=== PATIENT | male | born 1950 | race Caucasian/White ===

== ENCOUNTER → 2016-11-10 | Outpatient (CLI) | payer OTHER ==
--- NOTE | 2016-11-10 15:18 | XCELERA REPORT ---
[address] [address] Lower Extremity Arterial Evaluation Name: MICHAEL ERICKSON Age: 66 yrs Gender: Male : 1950 Patient Status: Outpatient Patient Location: Study Date: 11/10/2016 09:28 AM Procedure: A color flow and duplex scan of the lower extremity arteries was performed bilaterally with velocity and waveform anaylsis. Ankle brachial indicies performed. Reason For Study: PAIN Ordering Physician: LIANE PHILIPPE Performed By: Maycol Dover Measurements and Calculations Right Left DEPUTY SHERIFF GENERALIST/BAILIFF PSV 104.3 120.2 cm/sec Prox PFA PSV -98.7 -72.7 cm/sec Dist SFA PSV -93.7 -97.2 cm/sec Prox Pop A PSV 58.9 67.6 cm/sec Dist CORNELIUS PSV 36.2 38.5 cm/sec Dist CLIENT ARCHITECT PSV 61.3 64.6 cm/sec Hakan Pedis PSV 19.8 27.7 cm/sec Right Side Arterial Evaluation Normal velocity, waveform and triphasic flow are present, from the Common Femoral artery to the Posterior Tibial artery. Biphasic in the Deep Femoral and Anterior Tibial arteries. The ankle-brachial index is 1.11. 0-19 % stenosis is noted at the Anterior Tibial and Deep Femoral artery. Left Side Arterial Evaluation Normal velocity, waveform and triphasic flow are present, from the Common Femoral artery to the Posterior Tibial artery. Biphasic in the Deep Femoral and Anterior Tibial arteries. The ankle-brachial index is 1.05. 0-19 % stenosis is noted at the Anterior Tibial and Deep Femoral artery. Interpretation Summary Mild hemodynamically significant lesions in the bilateral lower extremities, on duplex imaging, at rest. : LIANE PHILIPPE > Matt Ramon
--- NOTE | 2016-11-10 15:20 | XCELERA REPORT ---
[address] [address] Lower Extremity Venous Evaluation Name: MICHAEL ERICKSON Age: 66 yrs Gender: Male : 1950 Patient Status: Outpatient Patient Location: Study Date: 11/10/2016 09:41 AM Procedure: A bilateral duplex scan of the lower extremity veins was performed. The evaluation included responses to compression and other maneuvers with patient in the supine and standing positions to assess venous insufficiency. Reason For Study: PAIN Ordering Physician: LIANE PHILIPPE Performed By: Maycol Dover Right Sided Venous Evaluation Deep venous system evaluatiion shows patent veins with no obstruction or significant reflux identified. Sapheno Femoral junction: no reflux. Femoral vein reflux: none identified Greater Saphenous reflux: none identified. Short Saphenous reflux: none identified. No significant Perforators identified. Left Sided Venous Evaluation Deep venous system evaluatiion shows patent veins with no obstruction or significant reflux identified. Sapheno Femoral junction: no reflux. Femoral vein reflux: none identified Greater Saphenous reflux: none identified. Short Saphenous reflux: none identified. No significant Perforators identified. Interpretation Summary No duplex evidence of DVT or obstruction in the bilateral lower extremities. No significant reflux identified. : LIANE PHILIPPE > Matt Ramon
== END ==
LOC: SP 08:50
PROVIDERS: ATTEND Student in an Organized Health Care Education/Training Program
DX: I87.2 Venous insufficiency (chronic) (peripheral) (principal)
CPT/HCPCS: 93925; 93970

== ENCOUNTER → 2017-05-29 | Outpatient (CLI) | payer MEDICARE, BC ==
[2017-05-29 09:46] LABS: ALANINE AMINOTRANSFERASE 19 U/L (21-72); ALBUMIN 3.9 g/dL (3.5-5.0); ALKALINE PHOSPHATASE 80 U/L (38-126); ANION GAP 9 (5-19); ASPARTATE AMINO TRANSFERASE 20 U/L (17-59); BILIRUBIN,DIRECT 0.4 mg/dL (0.0-0.4); BILIRUBIN,TOTAL 0.5 mg/dL (0.2-1.3); BLOOD UREA NITROGEN 16 mg/dL (7-20); CALCIUM 9.9 mg/dL (8.4-10.2); CARBON DIOXIDE 27 mmol/L (22-30); CHLORIDE 104 mmol/L (98-107); CHOLESTEROL 142.63 mg/dL (0-200); CREATININE RESULT 0.96 mg/dL (0.52-1.25); Direct HDL 54 mg/dL (>40); GLUCOSE 136 mg/dL (75-110); POTASSIUM 5.3 mmol/L (3.6-5.0); SODIUM 140.2 mmol/L (137-145); TOTAL PROTEIN 6.5 g/dL (6.3-8.2); TRIGLYCERIDES 106 mg/dL (<150)
[2017-05-29 09:57] LABS: DIRECT LDL 72 mg/dL (<100)
== END ==
LOC: OD 08:42
PROVIDERS: ATTEND Internal Medicine
DX: I25.10 Atherosclerotic heart disease of native coronary artery without angina pectoris (principal); I25.2 Old myocardial infarction; E78.5 Hyperlipidemia, unspecified; E11.9 Type 2 diabetes mellitus without complications; I10 Essential (primary) hypertension; I34.0 Nonrheumatic mitral (valve) insufficiency; Z79.899 Other long term (current) drug therapy
CPT/HCPCS: 36415; 80053; 80061

== ENCOUNTER → 2017-12-07 | Outpatient (CLI) | payer MEDICARE, BC ==
[2017-12-07 12:13] LABS: ALANINE AMINOTRANSFERASE 31 U/L (21-72); ALBUMIN 4.1 g/dL (3.5-5.0); ALKALINE PHOSPHATASE 88 U/L (38-126); ANION GAP 10 (5-19); ASPARTATE AMINO TRANSFERASE 21 U/L (17-59); BILIRUBIN,DIRECT 0.1 mg/dL (0.0-0.4); BILIRUBIN,TOTAL 0.2 mg/dL (0.2-1.3); BLOOD UREA NITROGEN 14 mg/dL (7-20); CALCIUM 9.6 mg/dL (8.4-10.2); CARBON DIOXIDE 27 mmol/L (22-30); CHLORIDE 98 mmol/L (98-107); CHOLESTEROL 150.92 mg/dL (0-200); GLUCOSE 139 mg/dL (75-110); POTASSIUM 5.2 mmol/L (3.6-5.0); SODIUM 134.6 mmol/L (137-145); TOTAL PROTEIN 6.4 g/dL (6.3-8.2); TRIGLYCERIDES 150 mg/dL (<150)
[2017-12-07 12:23] LABS: DIRECT LDL 77 mg/dL (<100)
== END ==
LOC: OD 10:43
PROVIDERS: ATTEND Internal Medicine
DX: I25.10 Atherosclerotic heart disease of native coronary artery without angina pectoris (principal); I10 Essential (primary) hypertension; E11.9 Type 2 diabetes mellitus without complications; E78.5 Hyperlipidemia, unspecified; I34.0 Nonrheumatic mitral (valve) insufficiency; I25.2 Old myocardial infarction; Z79.899 Other long term (current) drug therapy
CPT/HCPCS: 36415; 80053; 80061; 83036

== ENCOUNTER 2018-03-02 05:16 | Day surgery (SDC) | payer MEDICARE, BC ==
[2018-02-16 12:56] LABS: ABSOLUTE BASOPHILS # (AUTO) 0.1 10^3/uL (0.0-0.2); ABSOLUTE EOSINOPHILS # (AUTO) 0.2 10^3/uL (0.0-0.6); ABSOLUTE LYMPHOCYTES (AUTO) 2.4 10^3/uL (0.5-4.7); ABSOLUTE MONOCYTES (AUTO) 0.8 10^3/uL (0.1-1.4); ABSOLUTE NEUT (AUTO) 5.1 10^3/uL (1.7-8.2); BASOPHILS % (AUTO) 0.8 % (0-2); EOSINOPHILS % (AUTO) 2.5 % (0-6); HEMATOCRIT 43.2 % (37.9-51.0); HEMOGLOBIN 14.8 g/dL (13.5-17.0); LYMPHOCYTES % (AUTO) 28.2 % (13-45); MEAN CORPUSCULAR HGB CONC 34.1 g/dL (32.0-36.0); MEAN CORPUSCULAR VOLUME 91 fl (80-97); MONOCYTES % (AUTO) 9.5 % (3-13); PLATELET COUNT 289 10^3/uL (150-450); RED BLOOD COUNT 4.75 10^6/uL (4.35-5.55); RED CELL DISTRIBUTION WIDTH 14.8 % (11.5-14.0); TOTAL CELLS COUNTED % (AUTO) 100 %; WHITE BLOOD COUNT 8.6 10^3/uL (4.0-10.5)
[2018-02-16 13:01] LABS: INTERNATIONAL RATION (INR) 0.85; PROTHROMBIN TIME 12.1 SEC (11.4-15.4)
[2018-02-16 13:02] LABS: PARTIAL THROMBOPLASTIN TIME 25.2 SEC (23.5-35.8)
--- NOTE | 2018-02-16 13:36 | EKG REPORT ---
SEVERITY:- OTHERWISE NORMAL ECG - SINUS RHYTHM LOW VOLTAGE IN FRONTAL LEADS : Confirmed by: Sandro Cedillo MD 16-Feb-2018 13:35:56
[~2018-03-02 05:16] MED LIST: DOXYCYCLINE HYCLATE 100 MG in DEXTROSE 5%-WATER 250 ML IV PRN; LACTATED RINGERS 1000 ML IV PRN; LIDOCAINE 0.5% INJ-PF (5 MG/ML) 50 ML SDV SUBCUT PRN
[2018-03-02] MEDS ORDERED: POVIDONE-IODINE 5% OPH PREP SOLN 30 ML ONE (05:59)
[2018-03-02] MEDS ORDERED: SODIUM BICARBONATE 8.4% INJ 50 MEQ/50 ML DISP.SYRIN ONE (06:00)
[2018-03-02] MEDS ORDERED: LIDOCAINE 1%/EPINEPHRINE INJ 20 ML VIAL ONE (06:00)
[2018-03-02] MEDS ORDERED: FENTANYL CITRATE INJ/PF 100 MCG/2 ML AMPUL ONE (06:57)
[2018-03-02] MEDS ORDERED: MIDAZOLAM 2 MG/2 ML INJ ONE (06:57)
[2018-03-02] MEDS ORDERED: PROPOFOL INJ 200 MG/20 ML VIAL IV ONE (06:57)
[2018-03-02] MEDS ORDERED: FENTANYL CITRATE INJ/PF 100 MCG/2 ML AMPUL IV PRN ×3 (07:52)
[2018-03-02] MEDS ORDERED: MEPERIDINE HCL/PF INJ 25 MG/1 ML DISP.SYRIN IV PRN (07:52)
[2018-03-02] MEDS ORDERED: PROMETHAZINE HCL INJ 25 MG/1 ML VIAL IV PRN ×2 (07:52)
[2018-03-02] MEDS ORDERED: MORPHINE SULFATE 10 MG/ML INJ IV PRN (07:52)
[2018-03-02] MEDS ORDERED: DIPHENHYDRAMINE HCL 50 MG/ML VIAL IV PRN (07:52)
--- NOTE | 2018-03-02 09:43 | Operative Report ---
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 Reconstruction was with a lower eyelid rotation advancement flap reconstruction SURGEON: SURYA GUSTAFSON ANESTHESIA: LMAC TISSUE REMOVED OR ALTERED: Basal cell carcinoma COMPLICATIONS: None ESTIMATED BLOOD LOSS: Minimal PROCEDURE: Patient seen and was marked prior to being brought into the operating room. Patient was brought into the operating room and placed on the operating room table in a [supine] position. Patient was then prepped with a Betadine scrub and Betadine solution and draped in a sterile and aseptic manner. The area was then marked. 12 O'clock was marked towards the nose 3 O'clock was marked towards the lower eyelid 6:00 was marked towards the lateral eyelid 9:00 was marked towards the medial cheek The area was then anesthetized with 1% lidocaine with epinephrine and bicarbonate for its anesthetic and hemostatic effects. The area was then excised and marked at 12:00. The specimen was sent for frozen section. The base was reported by Dr. Suárez as close but he did see some of the orbicularis oculi muscle. He did further sections and we waited to get those results and he says the base is now clear. However the 9:00 margin he said was positive. We resected the 9: 00 margin which came back without cancer and therefore he felt that we had removed all the carcinoma and no further intervention was necessary. The final results came back and read as the deep and lateral margins were free. We had considered a primary closure but this would go against the natural relaxed skin tension lines. A primary closure would be too tight and would have increased chance of dehiscence and distortion of the eyelid.. This will leave more of a scar so we decided to use a rotation advancement flap reconstruction which would camouflage the scar better and take tension off of the closure so that would be less chances of complications. The design of the reconstruction would put minimal pull on the vertical height of the eyelid so it would minimize ectropion formation. It would also allow us to have some of the reconstruction of the long the patient's natural infraorbital groove along the tear trough and the nasojugal fold. Then we went ahead and outlined the flap and anesthetized it. We then incised the flap and developed a flap maintaining the subdermal plexus. Then we undermined 360 to allow for plate like scarring and minimize trap door deformity. Throughout the case hemostasis was achieved with the bipolar. We then sutured the flap into its new position using 5-0 Vicryl for the subcutaneous and deep dermis. Skin was closed with a interrupted stitch using 6-0 Prolene and 6-0 fast- absorbing gut. We then applied tincture benzoin and Steri-Strips followed by a light pressure dressing. Patient was then reversed from anesthesia and taken to the [facility] for recovery. The patient tolerated well. There were no complications. Lesion size was approximately 1.3 x 1.0 cm please see pathology for actual size. Portions of this note may be dictated using [employer] voice recognition software. Occasional variations and spelling and vocabulary could be possible and are unintentional. Additionally, there is a chance that some errors may not be caught or corrected. Please notify the author of any discrepancies noted or if any statements are unclear. Subjective: No complaints Objective: Vital signs stable afebrile No bleeding Dressing intact Assessment and plan: Doing well. Elevate the operative site. Resume medications. Take antibiotics for 1 day Follow-up Full instructions were given to the patient and family and they understand Portions of this note may be dictated using [employer] voice recognition software. Occasional variations and spelling and vocabulary could be possible and are unintentional. Additionally, there is a chance that some errors may not be caught or corrected. Please notify the offer of any discrepancies noted or if any statements are unclear.
--- NOTE | 2018-03-02 09:44 | Discharge Summary ---
Discharge Summary (SDC) - Discharge Final Diagnosis: Basal cell carcinoma of the left lower eyelid Date of Surgery: 03/02/18 Condition: Good Treatment or Instructions: Leave the top dressing on for 2 days, then removed. Leave the steri-strip tapes on for 5 days, then removal. Then cleaning wound with peroxide and apply Neosporin/bacitracin 3 times per day. Antibiotics for 1 day, then discontinue. Elevate operative area to decrease swelling. Do not strain, or lift heavy objects. Call for excessive bleeding, increased temperature of 101, uncontrolled pain, or excessive nausea or vomiting. You may reach Dr. Knowles through his office at [phone]. In the event of an emergency after hours, then contact Dr. Knowles through [facility]. Return to the office for a postop check on . The time will be scheduled by the nursing staff of [facility] prior to discharge. Please give the patient a copy of their labs and EKG so they can bring this to their PMD. Thank you Portions of this note may be dictated using [employer] voice recognition software. Occasional variations and spelling and vocabulary could be possible and are unintentional. Additionally, there is a chance that some errors may not be caught or corrected. Please notify the offer of any discrepancies noted or if any statements are unclear. Referrals: LIANE PHILIPPE, [Primary Care Provider] - Discharge Diet: As Tolerated Report the Following to Your Physician Immediately: Unusual Bleeding - Keep head elevated. No bending or straining. Do not rub the eyes.
[2018-03-02 11:30] VITALS: BP 119/74
== END 2018-03-02 11:05 | disposition home or self-care (01) ==
LOC: OROUT 05:16
PROVIDERS: ATTEND Plastic Surgery
DX: C44 Other and unspecified malignant neoplasm of skin (principal); J44.9 Chronic obstructive pulmonary disease, unspecified; K21.9 Gastro-esophageal reflux disease without esophagitis; Z79.51 Long term (current) use of inhaled steroids; Z87.891 Personal history of nicotine dependence; I25.2 Old myocardial infarction; Z88.0 Allergy status to penicillin; Z79.82 Long term (current) use of aspirin; Z79.899 Other long term (current) drug therapy; Z79.84 Long term (current) use of oral hypoglycemic drugs; Z85.828 Personal history of other malignant neoplasm of skin; Z01.818 Encounter for other preprocedural examination
CPT/HCPCS: 14060; 93005; 36415; 82962; 85025; 85610; 85730; 88305 ×2; 88331 ×2; 93010; J2250; J3490 ×4; J3010; J7060; J2704; 300

== ENCOUNTER → 2018-06-07 | Outpatient (CLI) | payer MEDICARE, BC ==
[2018-06-07 11:02] LABS: ALANINE AMINOTRANSFERASE 26 U/L (21-72); ALBUMIN 3.7 g/dL (3.5-5.0); ALKALINE PHOSPHATASE 73 U/L (38-126); ANION GAP 9 (5-19); ASPARTATE AMINO TRANSFERASE 22 U/L (17-59); BILIRUBIN,DIRECT 0.2 mg/dL (0.0-0.4); BILIRUBIN,TOTAL 0.3 mg/dL (0.2-1.3); BLOOD UREA NITROGEN 16 mg/dL (7-20); CALCIUM 9.5 mg/dL (8.4-10.2); CARBON DIOXIDE 29 mmol/L (22-30); CHLORIDE 104 mmol/L (98-107); CHOLESTEROL 127.61 mg/dL (0-200); GLUCOSE 123 mg/dL (75-110); POTASSIUM 5.1 mmol/L (3.6-5.0); SODIUM 141.6 mmol/L (137-145); TOTAL PROTEIN 6.3 g/dL (6.3-8.2); TRIGLYCERIDES 104 mg/dL (<150)
[2018-06-07 11:13] LABS: DIRECT LDL 61 mg/dL (<100)
== END ==
LOC: OD 09:25
PROVIDERS: ATTEND Internal Medicine
DX: I25.10 Atherosclerotic heart disease of native coronary artery without angina pectoris (principal); I10 Essential (primary) hypertension; E78.5 Hyperlipidemia, unspecified; E11.9 Type 2 diabetes mellitus without complications; I25.2 Old myocardial infarction; I34.0 Nonrheumatic mitral (valve) insufficiency; Z79.899 Other long term (current) drug therapy
CPT/HCPCS: 36415; 80053; 80061; 83036

== ENCOUNTER 2018-07-13 08:30 | Day surgery (SDC) | payer MEDICARE, BC ==
[~2018-07-13 08:30] MED LIST changes: -LACTATED RINGERS 1000 ML IV PRN; -LIDOCAINE 0.5% INJ-PF (5 MG/ML) 50 ML SDV SUBCUT PRN
[2018-07-13 09:26] LABS: HEMATOCRIT 43.2 % (37.9-51.0); MEAN CORPUSCULAR HEMOGLOBIN 32.1 pg (27.0-33.4); MEAN CORPUSCULAR HGB CONC 34.7 g/dL (32.0-36.0); MEAN CORPUSCULAR VOLUME 93 fl (80-97); PLATELET COUNT 285 10^3/uL (150-450); RED BLOOD COUNT 4.67 10^6/uL (4.35-5.55); RED CELL DISTRIBUTION WIDTH 13.9 % (11.5-14.0); WHITE BLOOD COUNT 9.2 10^3/uL (4.0-10.5)
[2018-07-13 09:35] LABS: INTERNATIONAL RATION (INR) 0.86; PROTHROMBIN TIME 12.2 SEC (11.4-15.4)
[2018-07-13 09:36] LABS: PARTIAL THROMBOPLASTIN TIME 27.9 SEC (23.5-35.8)
[2018-07-13 09:41] LABS: ANION GAP 12 (5-19); BLOOD UREA NITROGEN 10 mg/dL (7-20); CARBON DIOXIDE 25 mmol/L (22-30); CHLORIDE 105 mmol/L (98-107); GLUCOSE 128 mg/dL (75-110); POTASSIUM 4.8 mmol/L (3.6-5.0); SODIUM 142.3 mmol/L (137-145)
--- NOTE | 2018-07-13 10:03 | RADIOLOGY REPORT (SQ) ---
EXAM DESCRIPTION: CHEST SINGLE VIEW COMPLETED DATE/TIME: 07/13/2018 9:50 am REASON FOR STUDY: PREOP COMPARISON: 04/15/2016 EXAM PARAMETERS: NUMBER OF VIEWS: One view. TECHNIQUE: Single frontal radiographic view of the chest acquired. RADIATION DOSE: NA LIMITATIONS: None. FINDINGS: LUNGS AND PLEURA: No opacities, masses or pneumothorax. No pleural effusion. MEDIASTINUM AND HILAR STRUCTURES: No masses. Contour normal. HEART AND VASCULAR STRUCTURES: Heart normal in size. Normal vasculature. BONES: No acute findings. HARDWARE: None in the chest. OTHER: No other significant finding. IMPRESSION: NO ACUTE RADIOGRAPHIC FINDING IN THE CHEST. TECHNICAL DOCUMENTATION: JOB ID: [id number] [employer]- All Rights Reserved Reading location - IP/workstation name: [email or web address]
[2018-07-13] MEDS ORDERED: MIDAZOLAM 2 MG/2 ML INJ ONE (10:37)
[2018-07-13] MEDS ORDERED: FENTANYL CITRATE INJ/PF 100 MCG/2 ML AMPUL ONE ×2 (10:37→10:40)
[2018-07-13] MEDS ORDERED: PROPOFOL INJ 200 MG/20 ML VIAL IV ONE (10:38)
[2018-07-13] MEDS: SODIUM BICARBONATE 8.4% INJ 50 MEQ/50 ML DISP.SYRIN ONE ×2 (11:32→11:42)
[2018-07-13] MEDS: LIDOCAINE 1%/EPINEPHRINE INJ 20 ML VIAL ONE ×2 (11:32→11:41)
[2018-07-13] MEDS ORDERED: MEPERIDINE HCL/PF INJ 25 MG/1 ML DISP.SYRIN IV PRN (11:44)
[2018-07-13] MEDS ORDERED: PROMETHAZINE HCL INJ 25 MG/1 ML VIAL IV PRN ×2 (11:44)
[2018-07-13] MEDS ORDERED: FENTANYL CITRATE INJ/PF 100 MCG/2 ML AMPUL IV PRN ×3 (11:44)
[2018-07-13] MEDS ORDERED: DIPHENHYDRAMINE HCL 50 MG/ML VIAL IV PRN (11:44)
--- NOTE | 2018-07-13 12:29 | Operative Report ---
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 Patient was brought into the operating room and placed on the operating room table in a supine position. Patient was then prepped with a Betadine scrub and Betadine solution and draped in a sterile and aseptic manner. The area was then marked. 12 O'clock was marked towards the elbow 3 O'clock was marked towards the volar forearm 6:00 was marked towards the wrist 9:00 was marked towards the radial forearm The area was then anesthetized with 1% lidocaine with epinephrine and bicarbonate for its anesthetic and hemostatic effects. The area was then excised and marked at 12:00. The specimen was sent for frozen section. The results came back that the deep and lateral margins were free. We had considered a primary closure but this would go against the natural relaxed skin tension lines. A primary closure would be too tight and would have increased chance of dehiscence. This will leave more of a scar so we decided to use a rotation flap reconstruction which would camouflage the scar better and take tension off of the closure so that would be less chances of complications. Using a rotation flap we will be able to design this to use the area of skin where there was less tension so that we can have a stable closure. Then we went ahead and outlined the flap and anesthetized it. We then incised the flap and developed a flap maintaining the subdermal plexus. Then we undermined 360 to allow for plate like scarring and minimize trap door deformity. Throughout the case hemostasis was achieved with the bipolar. We then sutured the flap into its new position using 4-0 Vicryl for the subcutaneous and deep dermis. Skin was closed with a running subcuticular suture stitch using 3-0 PDS with knots being tied on the outside. And 3-0 PDS suture was used for support and placed in the central area of the incision. We then applied tincture benzoin and Steri-Strips followed by a light pressure dressing. Patient was then reversed from anesthesia and taken to the [facility] for recovery. The patient tolerated well. There were no complications. Lesion size was approximately 2.4 cm please see pathology for actual size. Portions of this note may be dictated using [employer] voice recognition software. Occasional variations and spelling and vocabulary could be possible and are unintentional. Additionally, there is a chance that some errors may not be caught or corrected. Please notify the author of any discrepancies noted or if any statements are unclear. Subjective: No complaints Objective: Vital signs stable afebrile No bleeding Dressing intact Assessment and plan: Doing well. Elevate the operative site. Resume medications. Take antibiotics for 1 day Follow-up Full instructions were given to the patient and family and they understand Portions of this note may be dictated using [employer] voice recognition software. Occasional variations and spelling and vocabulary could be possible and are unintentional. Additionally, there is a chance that some errors may not be caught or corrected. Please notify the offer of any discrepancies noted or if any statements are unclear.
--- NOTE | 2018-07-13 12:31 | Discharge Summary ---
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 Leave the steri-strip tapes on for 5 days, then removal. Then cleaning wound with peroxide and apply Neosporin/bacitracin 3 times per day. Antibiotics for 1 day, then discontinue. Elevate operative area to decrease swelling. Do not strain, or lift heavy objects. Call for excessive bleeding, increased temperature of 101, uncontrolled pain, or excessive nausea or vomiting. You may reach Dr. Knowles through his office at [phone]. In the event of an emergency after hours, then contact Dr. Knowles through [facility]. Return to the office for a postop check on . The time will be scheduled by the nursing staff of [facility] prior to discharge. Please give the patient a copy of their labs and EKG so they can bring this to their PMD. Thank you Portions of this note may be dictated using [employer] voice recognition software. Occasional variations and spelling and vocabulary could be possible and are unintentional. Additionally, there is a chance that some errors may not be caught or corrected. Please notify the offer of any discrepancies noted or if any statements are unclear. Referrals: LIANE PHILIPPE DO [Primary Care Provider] - Discharge Diet: As Tolerated Discharge Activity: No Lifting/Push/Pulling Report the Following to Your Physician Immediately: Unusual Bleeding - Keep arm elevated. Limited activities. No lifting.
[2018-07-13 13:58] VITALS: BP 136/83
== END 2018-07-13 14:00 | disposition home or self-care (01) ==
LOC: OROUT 08:30
PROVIDERS: ATTEND Plastic Surgery
DX: C44.629 Squamous cell carcinoma of skin of left upper limb, including shoulder (principal); L57.0 Actinic keratosis; J44.9 Chronic obstructive pulmonary disease, unspecified; E11.9 Type 2 diabetes mellitus without complications; F17.210 Nicotine dependence, cigarettes, uncomplicated; Z79.01 Long term (current) use of anticoagulants; Z88.0 Allergy status to penicillin; Z79.51 Long term (current) use of inhaled steroids; Z79.82 Long term (current) use of aspirin; Z79.899 Other long term (current) drug therapy; Z79.84 Long term (current) use of oral hypoglycemic drugs; I25.2 Old myocardial infarction; Z99.81 Dependence on supplemental oxygen
CPT/HCPCS: 36415; 85027; 85610; 85730; 80048; 88305 ×2; 88331 ×2; 71045; 14020; J2250; J3490 ×3; J3010; J7060; J2704; 400

== ENCOUNTER → 2018-07-26 | Outpatient (CLI) | payer MEDICARE, BC ==
--- NOTE | 2018-07-26 14:28 | RADIOLOGY REPORT (SQ) ---
EXAM DESCRIPTION: ARTERIAL LOWER EXTREM BILAT COMPLETED DATE/TIME: 07/26/2018 10:57 am REASON FOR STUDY: BLE PAIN I70.[address] [place] ARTERIES OF EXTRM W REST PAIN, BILATER COMPARISON: 11/10/2016. TECHNIQUE: Dynamic and static rich scale and color images acquired of the lower extremity arteries. Additional selected spectral images recorded. LIMITATIONS: None. FINDINGS: RIGHT LEG: INFLOW ARTERIES: Normal, no obstruction evident. FEMORAL ARTERIES:Triphasic waveforms. Normal, no velocity elevation to suggest focal stenosis. Normal color Doppler evaluation. No aneurysm. POPLITEAL ARTERY:Triphasic waveforms. Normal, no velocity elevation to suggest focal stenosis. Normal color Doppler evaluation. No aneurysm. PATENT TIBIOPERONEAL TRUNK AND 3 VESSEL RUNOFF: Yes, normal vessels. OTHER: Scattered atherosclerotic plaque. LEFT LEG: INFLOW ARTERIES: Normal, no obstruction evident. FEMORAL ARTERIES:Triphasic waveforms. Normal, no velocity elevation to suggest focal stenosis. Normal color Doppler evaluation. No aneurysm. POPLITEAL ARTERY:Triphasic waveforms. Normal, no velocity elevation to suggest focal stenosis. Normal color Doppler evaluation. No aneurysm. PATENT TIBIOPERONEAL TRUNK AND 3 VESSEL RUNOFF: Yes, normal vessels. OTHER: Scattered atherosclerotic plaque. IMPRESSION: SCATTERED ATHEROSCLEROTIC PLAQUE. NO OCCLUSIONS OR SIGNIFICANT STENOSIS. TECHNICAL DOCUMENTATION: JOB ID: [id number] [employer]- All Rights Reserved Reading location - IP/workstation name: [email or web address]
== END ==
LOC: SP 08:32
PROVIDERS: ATTEND Specialist
DX: I70.223 Atherosclerosis of native arteries of extremities with rest pain, bilateral legs (principal)
CPT/HCPCS: 93925

== ENCOUNTER 2018-09-14 07:45 | Day surgery (SDC) | payer MEDICARE, BC ==
[~2018-09-14 07:45] MED LIST changes: +LIDOCAINE 1%/EPINEPHRINE INJ 20 ML VIAL ONE; +SODIUM BICARBONATE 8.4% INJ 50 MEQ/50 ML DISP.SYRIN ONE
[2018-09-14] MEDS ORDERED: KETAMINE HCL INJ 500 MG/10 ML VIAL ONE (09:52)
[2018-09-14] MEDS ORDERED: FENTANYL CITRATE INJ/PF 100 MCG/2 ML AMPUL ONE (09:53)
[2018-09-14] MEDS ORDERED: PROPOFOL INJ 200 MG/20 ML VIAL IV ONE (09:53)
[2018-09-14] MEDS ORDERED: ONDANSETRON HCL INJ/PF 4 MG/2 ML SDV ONE (09:53)
[2018-09-14] MEDS ORDERED: MIDAZOLAM 2 MG/2 ML INJ ONE (09:53)
[2018-09-14] MEDS ORDERED: PROMETHAZINE HCL INJ 25 MG/1 ML VIAL IV PRN ×2 (10:48)
[2018-09-14] MEDS ORDERED: FENTANYL CITRATE INJ/PF 100 MCG/2 ML AMPUL IV PRN ×3 (10:48)
[2018-09-14] MEDS ORDERED: DIPHENHYDRAMINE HCL 50 MG/ML VIAL IV PRN (10:48)
[2018-09-14] MEDS ORDERED: MORPHINE SULFATE 10 MG/ML INJ IV PRN (10:48)
[2018-09-14] MEDS ORDERED: MEPERIDINE HCL/PF INJ 25 MG/1 ML DISP.SYRIN IV PRN (10:48)
[2018-09-14] MEDS ORDERED: OXYCODONE-ACETAMINOPHEN 5-325 MG TABLET PO PRN ×2 (10:48)
[2018-09-14] MEDS ORDERED: LIDOCAINE 1%/EPINEPHRINE INJ 20 ML VIAL ONE (11:01)
[2018-09-14] MEDS ORDERED: MINERAL OIL (STERILE) 10 ML VIAL ONE ×2 (11:21→12:16)
--- NOTE | 2018-09-14 13:01 | EKG REPORT ---
SEVERITY:- BORDERLINE ECG - SINUS RHYTHM PROBABLE LEFT ATRIAL ABNORMALITY LOW VOLTAGE IN FRONTAL LEADS BORDERLINE T ABNORMALITIES, ANT-LAT LEADS : Confirmed by: Sandro Cedillo MD 14-Sep-2018 12:59:30
--- NOTE | 2018-09-14 13:09 | Operative Report ---
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 The patient was laid on the operating room table in a supine position. The patient was prepped and draped in a sterile and aseptic fashion. After a timeout we then went ahead and marked the area on the left forearm including a satellite lesion to be resected. The 12:00 margin the antecubital fossa. The 3:00 margin the ulnar forearm. The 6:00 margin the wrist. The 9:00 margin the radial forearm. Then went ahead and anesthetize the area with 1% lidocaine with epinephrine. Then went ahead and excise the area. Stitch was placed at 12:00 and it was sent for frozen section. Frozen section results came back that the deep and lateral margins were clear. We irrigated the wound with Betadine sterile water to lyse any remaining cancer cells. We then went ahead and decided that because of the size of the defect we will proceed with a skin graft. Decided to harvest the graft from left anterior thigh. We then went ahead and harvest the split-thickness graft. We used a Susan dermatome and harvested skin from the left thigh. We will use the lock plate that was 10 cm in width and harvested about 13 cm of length to adequately cover the defect with the best quality skin. When harvesting the skin we applied mineral oil after anesthetizing it and then used a dermatome for the harvest. The graft was then cut to the appropriate size and placed into the area of defect. The graft was stapled into place. Pie crusting was performed within the central portion of the graft to allow for drainage. The central portion of the graft was was also stapled into place to anchor it in its position. 4-0 Prolene sutures were placed in order to create a bolus tie-over dressing. After the sutures were placed we applied Xeroform mineral oil soaked cotton balls and then performed a bolus tie-over dressing. This now stabilized the graft. We then tied those sutures on themselves. At the end of the case we then went ahead and applied fluffs web roll and an Ortho-Glass splint. Dionte wrap held this in place. We then turned our attention to the area of harvest Xeroform was applied. Tegaderm was then applied. 4 x 4's were applied and then ABD pad and this was then taped into place. At the end of the case the patient was doing well and brought to the [facility] for recovery The approximate size of the lesion was 9 cm by approximately 7 cm and after the removal of the defect was about 10 cm x 11 cm. This dictation was performed using [employer] naturally speaking. If there are any inconsistencies please contact the dictating surgeon. Subjective: No complaints Objective: Vital signs stable afebrile No bleeding Dressing intact Assessment and plan: Doing well. Elevate the operative site. Resume medications. Take antibiotics for 1 day Follow-up Full instructions were given to the patient and family and they understand Portions of this note may be dictated using [employer] voice recognition software. Occasional variations and spelling and vocabulary could be possible and are unintentional. Additionally, there is a chance that some errors may not be caught or corrected. Please notify the offer of any discrepancies noted or if any statements are unclear.
--- NOTE | 2018-09-14 13:11 | Discharge Summary ---
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 Elevate operative area to decrease swelling. Do not strain, or lift heavy objects. Call for excessive bleeding, increased temperature of 101, uncontrolled pain, or excessive nausea or vomiting. You may reach Dr. Knowles through his office at [phone]. In the event of an emergency after hours, then contact Dr. Knowles through [facility]. Return to the office for a postop check on . The time will be scheduled by the nursing staff of [facility] prior to discharge. Please give the patient a copy of their labs and EKG so they can bring this to their PMD. Thank you Portions of this note may be dictated using [employer] voice recognition software. Occasional variations and spelling and vocabulary could be possible and are unintentional. Additionally, there is a chance that some errors may not be caught or corrected. Please notify the offer of any discrepancies noted or if any statements are unclear. Referrals: LIANE PHILIPPE DO [Primary Care Provider] - Discharge Diet: As Tolerated Discharge Activity: No Lifting/Push/Pulling Report the Following to Your Physician Immediately: Unusual Bleeding - Keep arm elevated. Keep dressings intact. Follow-up on .
[2018-09-14 15:37] VITALS: BP 126/79
== END 2018-09-14 15:30 | disposition home or self-care (01) ==
LOC: OROUT 07:45
PROVIDERS: ATTEND Plastic Surgery
DX: C44.629 Squamous cell carcinoma of skin of left upper limb, including shoulder (principal); I25.2 Old myocardial infarction; J44.9 Chronic obstructive pulmonary disease, unspecified; I11.0 Hypertensive heart disease with heart failure; I20.9 Angina pectoris, unspecified; Z79.51 Long term (current) use of inhaled steroids; Z79.82 Long term (current) use of aspirin; Z79.899 Other long term (current) drug therapy; Z88.0 Allergy status to penicillin; Z79.84 Long term (current) use of oral hypoglycemic drugs; Z87.891 Personal history of nicotine dependence; Z85.828 Personal history of other malignant neoplasm of skin
CPT/HCPCS: 11606; 15100; 88305 ×2; 88331 ×2; 93005; 93010; 94640; J2250; J3490 ×5; J3010; J2405; J7060; J2704; 400

== ENCOUNTER → 2018-10-31 | Outpatient (CLI) | payer MEDICARE, BC ==
--- NOTE | 2018-11-01 10:09 | RADIOLOGY REPORT (SQ) ---
EXAM DESCRIPTION: PET CT SKULL/THIGH COMPLETED DATE/TIME: 10/31/2018 9:19 pm REASON FOR STUDY: SQUAMOUS CELL CARCINOMA OF SKIN C44.92 SQUAMOUS CELL CARCINOMA OF SKIN, UNSPECIFI ED COMPARISON: None. RADIONUCLIDE AND DOSE: 11.4. mCi F18 FDG The route of agent administration: Intravenous FASTING BLOOD SUGAR: 111 mg/dl CONTRAST TYPE AND DOSE: No CT contrast given. TECHNIQUE: Blood glucose level was verified. Above dose of FDG was injected intravenously. 2-D seg mented attenuation correction images were obtained from the base of the skull to the midthighs. Nonc ontrast CT images were obtained for attenuation correction and fusion with emission images. CT image s were performed without oral or intravenous contrast and are not sensitive for parenchymal lesions. A series of overlapping emission PET images were obtained. Images reviewed and manipulated at [facility] work station by the radiologist. Images stored on PACS. LIMITATIONS: None. FINDINGS: HEAD AND NECK: No areas of abnormal metabolic activity in the soft tissues of the head and neck. CHEST: 1.8 cm pleural-based nodule posterior right upper lobe measuring 7.0 SUV. 1.5 cm pleural-base d nodule lingula measuring 4.4 SUV. ABDOMEN AND PELVIS: No areas of abnormal metabolic activity in the abdomen or pelvis. Expected physi ologic activity is present in the genitourinary system and bowel. EXTREMITIES: Uptake 3.7 SUV right antecubital fossa subcutaneous tissues without definite correspondi ng morphologic lesion. Activity has morphologic appearance of being within a vessel on the coronal i mages and is probably physiologic associated with injection site. BONES: No abnormal metabolic activity in the visualized skeleton. ADDITIONAL CT FINDINGS: Sigmoid diverticulosis. OTHER: No other significant findings. IMPRESSION: Hypermetabolic pulmonary nodules suspicious for 2nd primary or metastatic disease. TECHNICAL DOCUMENTATION: JOB ID: [id number] [employer]- All Rights Reserved Reading location - IP/workstation name: [email or web address]
== END ==
LOC: RAD 16:01
PROVIDERS: ATTEND Internal Medicine Medical Oncology
DX: C44.82 Squamous cell carcinoma of overlapping sites of skin (principal); R91.8 Other nonspecific abnormal finding of lung field
CPT/HCPCS: 78815; A9552

== ENCOUNTER 2018-11-16 08:29 | Day surgery (SDC) | payer MEDICARE, BC ==
[2018-11-15 09:07] LABS: ABSOLUTE BASOPHILS # (AUTO) 0.1 10^3/uL (0.0-0.2); ABSOLUTE EOSINOPHILS # (AUTO) 0.2 10^3/uL (0.0-0.6); ABSOLUTE LYMPHOCYTES (AUTO) 2.5 10^3/uL (0.5-4.7); ABSOLUTE MONOCYTES (AUTO) 0.6 10^3/uL (0.1-1.4); ABSOLUTE NEUT (AUTO) 3.5 10^3/uL (1.7-8.2); BASOPHILS % (AUTO) 1.4 % (0-2); EOSINOPHILS % (AUTO) 2.9 % (0-6); HEMATOCRIT 38.8 % (37.9-51.0); LYMPHOCYTES % (AUTO) 36.2 % (13-45); MEAN CORPUSCULAR HEMOGLOBIN 29.9 pg (27.0-33.4); MEAN CORPUSCULAR HGB CONC 33.6 g/dL (32.0-36.0); MEAN CORPUSCULAR VOLUME 89 fl (80-97); MONOCYTES % (AUTO) 9.1 % (3-13); PLATELET COUNT 406 10^3/uL (150-450); RED BLOOD COUNT 4.35 10^6/uL (4.35-5.55); RED CELL DISTRIBUTION WIDTH 14.6 % (11.5-14.0); SEGMENTED NEUTROPHILS % (AUTO) 50.4 % (42-78); TOTAL CELLS COUNTED % (AUTO) 100 %
[2018-11-15 09:12] LABS: INTERNATIONAL RATION (INR) 0.99; PARTIAL THROMBOPLASTIN TIME 28.8 SEC (23.5-35.8); PROTHROMBIN TIME 13.5 SEC (11.4-15.4)
[2018-11-15 09:32] LABS: ANION GAP 9 (5-19); BLOOD UREA NITROGEN 11 mg/dL (7-20); CARBON DIOXIDE 25 mmol/L (22-30); CHLORIDE 99 mmol/L (98-107); GLUCOSE 164 mg/dL (75-110); POTASSIUM 5.1 mmol/L (3.6-5.0); SODIUM 133.4 mmol/L (137-145)
--- NOTE | 2018-11-15 13:34 | EKG REPORT ---
SEVERITY:- OTHERWISE NORMAL ECG - SINUS RHYTHM LOW VOLTAGE IN FRONTAL LEADS : Confirmed by: Sandro Cedillo MD 15-Nov-2018 13:34:10
[~2018-11-16 08:29] MED LIST changes: -LIDOCAINE 1%/EPINEPHRINE INJ 20 ML VIAL ONE; -SODIUM BICARBONATE 8.4% INJ 50 MEQ/50 ML DISP.SYRIN ONE
[2018-11-16] MEDS ORDERED: MIDAZOLAM 2 MG/2 ML INJ ONE (08:56)
[2018-11-16] MEDS ORDERED: PROPOFOL INJ 200 MG/20 ML VIAL IV ONE (08:57)
[2018-11-16] MEDS ORDERED: BACITRACIN ZINC OINTMENT 15 GM ONE (09:03)
[2018-11-16] MEDS ORDERED: SODIUM BICARBONATE 8.4% INJ 50 MEQ/50 ML DISP.SYRIN ONE (09:03)
[2018-11-16] MEDS ORDERED: LIDOCAINE 1%/EPINEPHRINE INJ 20 ML VIAL ONE (09:03)
--- NOTE | 2018-11-16 10:21 | Operative Report ---
Operative Report DATE OF SURGERY: 11/16/18 PREOPERATIVE DIAGNOSIS: Basal cell carcinoma of the right anterior thigh POSTOPERATIVE DIAGNOSIS: Same OPERATION: Excision of basal cell carcinoma from the right anterior thigh with frozen section margin control and reconstruction with a rotation flap SURGEON: SURYA GUSTAFSON ANESTHESIA: LMAC TISSUE REMOVED OR ALTERED: Basal cell carcinoma COMPLICATIONS: None ESTIMATED BLOOD LOSS: Minimal PROCEDURE: Patient seen and was marked prior to being brought into the operating room. Patient was brought into the operating room and placed on the operating room table in a supine position. Patient was then prepped with a Betadine scrub and Betadine solution and draped in a sterile and aseptic manner. The area was then marked. 12 O'clock was marked towards the groin 3 O'clock was marked towards the medial thigh 6:00 was marked towards the knee 9:00 was marked towards the lateral thigh The area was then anesthetized with 1% lidocaine with epinephrine and bicarbonate for its anesthetic and hemostatic effects. The area was then excised and marked at 12:00. The specimen was sent for frozen section. The results came back that the deep and lateral margins were free. We had considered a primary closure but this would go against the natural relaxed skin tension lines. A primary closure would be too tight and would have increased chance of dehiscence. This will leave more of a scar so we decided to use a rotation flap reconstruction which would camouflage the scar better and take tension off of the closure so that would be less chances of complications. It was felt that the design of the flap should be made so that it will use the area where there is a least amount of tension and an area that will not take any forces from the flexion of the knee. Flap that we designed would fit into this category and this is why we decided to use the rotation flap so that we can change the direction where the forces are going to be applied by flexing the knee and directed forces more and a vertical direction. Then we went ahead and outlined the flap and anesthetized it. We then incised the flap and developed a flap maintaining the subdermal plexus. Then we undermined 360 to allow for plate like scarring and minimize trap door deformity. Throughout the case hemostasis was achieved with the bipolar. We then sutured the flap into its new position using 3-0 Vicryl for the subcutaneous and deep dermis. Skin was closed with a running subcuticular suture stitch using 3-0 PDS with knots being tied on the outside. And 3-0 PDS suture was used for support and placed in the central area of the incision. We then applied Dermabond followed by a light pressure dressing. Patient was then reversed from anesthesia and taken to the [facility] for recovery. The patient tolerated well. There were no complications. Lesion size was approximately 2.2 cm please see pathology for actual size. Portions of this note may be dictated using [employer] voice recognition software. Occasional variations and spelling and vocabulary could be possible and are unintentional. Additionally, there is a chance that some errors may not be caught or corrected. Please notify the author of any discrepancies noted or if any statements are unclear. Subjective: No complaints Objective: Vital signs stable afebrile No bleeding Dressing intact Assessment and plan: Doing well. Elevate the operative site. Resume medications. Take antibiotics for 1 day Follow-up Full instructions were given to the patient and family and they understand Portions of this note may be dictated using [employer] voice recognition software. Occasional variations and spelling and vocabulary could be possible and are unintentional. Additionally, there is a chance that some errors may not be caught or corrected. Please notify the offer of any discrepancies noted or if any statements are unclear.
--- NOTE | 2018-11-16 10:23 | Discharge Summary ---
Discharge Summary (SDC) - Discharge Final Diagnosis: Basal cell carcinoma of the right anterior thigh Date of Surgery: 11/16/18 Condition: Good Forms: [facility] Discharge Plan Treatment or Instructions: Antibiotics for 1 day, then discontinue. Elevate operative area to decrease swelling. Do not strain, or lift heavy objects. Call for excessive bleeding, increased temperature of 101, uncontrolled pain, or excessive nausea or vomiting. You may reach Dr. Gustafson through his office at [phone]. In the event of an emergency after hours, then contact Dr. Gustafson through [facility]. Return to the office for a postop check on . The time will be scheduled by the nursing staff of [facility] prior to discharge. Please give the patient a copy of their labs and EKG so they can bring this to their PMD. Thank you Portions of this note may be dictated using [employer] voice recognition software. Occasional variations and spelling and vocabulary could be possible and are u nintentional. Additionally, there is a chance that some errors may not be caught or corrected. Please notify the offer of any discrepancies noted or if any statements are unclear. Referrals: SURYA GUSTAFSON MD [ACTIVE STAFF] - Discharge Diet: As Tolerated Discharge Activity: No Lifting/Push/Pulling Report the Following to Your Physician Immediately: Unusual Bleeding - Do not do any extensive flexion or extension of the leg. Try to keep the leg elevated
== END 2018-11-16 11:03 | disposition home or self-care (01) ==
LOC: SC 08:29
PROVIDERS: ATTEND Plastic Surgery
DX: C44.712 Basal cell carcinoma of skin of right lower limb, including hip (principal); L57.8 Other skin changes due to chronic exposure to nonionizing radiation; L57.0 Actinic keratosis; J44.9 Chronic obstructive pulmonary disease, unspecified; I25.2 Old myocardial infarction; K21.9 Gastro-esophageal reflux disease without esophagitis; E11.9 Type 2 diabetes mellitus without complications; Z79.84 Long term (current) use of oral hypoglycemic drugs; Z79.51 Long term (current) use of inhaled steroids; Z79.899 Other long term (current) drug therapy; Z88.0 Allergy status to penicillin
CPT/HCPCS: 93010; 93005; 36415; 82962; 85025; 85610; 85730; 80048; 88305 ×2; 88331 ×2; 14020; J2250; J3490 ×3; J7060; J2704; 400

== ENCOUNTER 2018-11-23 08:48 | Day surgery (SDC) | payer MEDICARE, BC ==
[2018-11-23 09:27] LABS: HEMATOCRIT 39.2 % (37.9-51.0); HEMOGLOBIN 13.1 g/dL (13.5-17.0); MEAN CORPUSCULAR HGB CONC 33.4 g/dL (32.0-36.0); MEAN CORPUSCULAR VOLUME 90 fl (80-97); PLATELET COUNT 301 10^3/uL (150-450); RED BLOOD COUNT 4.37 10^6/uL (4.35-5.55); RED CELL DISTRIBUTION WIDTH 14.4 % (11.5-14.0); WHITE BLOOD COUNT 6.4 10^3/uL (4.0-10.5)
[2018-11-23 09:39] LABS: BLOOD UREA NITROGEN 15 mg/dL (7-20)
[2018-11-23 09:42] LABS: INTERNATIONAL RATION (INR) 0.88; PROTHROMBIN TIME 12.4 SEC (11.4-15.4)
[2018-11-23 09:45] LABS: PARTIAL THROMBOPLASTIN TIME 26.1 SEC (23.5-35.8)
[2018-11-23] MEDS ORDERED: MIDAZOLAM 2 MG/2 ML INJ ONE (11:10)
[2018-11-23] MEDS ORDERED: FENTANYL CITRATE INJ/PF 100 MCG/2 ML AMPUL ONE (11:10)
[2018-11-23] MEDS ORDERED: NALOXONE HCL INJ/PF 0.4 MG/1 ML SDV ONE (11:11)
[2018-11-23] MEDS ORDERED: FLUMAZENIL INJ 0.5 MG/5 ML VIAL ONE (11:11)
--- NOTE | 2018-11-23 12:22 | RADIOLOGY REPORT (SQ) ---
EXAM DESCRIPTION: CT CHEST WITHOUT COMPLETED DATE/TIME: 11/23/2018 12:00 pm REASON FOR STUDY: SOLITARY PULMONARY NODULE R91.1 SOLITARY PULMONARY NODULE Z79.01 RESIDENTIAL ([facility]) USE OF ANTICOAGULANTS COMPARISON: 10/31/2018. TECHNIQUE: Aborted CT guided biopsy of the right apical subpleural nodule secondary to resolution on repeat imaging. All CT scanners at this facility use dose modulation, iterative reconstruction, and/or weight based d osing when appropriate to reduce radiation dose to as low as reasonably achievable (ALARA). [facility]: Dose Right [facility]: CareDose [facility]: Dose Right [facility]: Teradose 4D [facility]: Smart sailsquare RADIATION DOSE: CT Rad equipment meets quality standard of care and radiation dose reduction techni ques were employed. CTDIvol: 17.0 mGy. DLP: 242 mGy-cm.mGy. FINDINGS: After obtaining informed consent and explaining the risks and benefits of conscious sedati on,the patient agreed to the procedure. . Noncontrast CT scanning was performed to localize the percutaneous site for the biopsy approach which demonstrated resolution of previously described right apical subpleural nodule. The procedure was a borted at this time. IMPRESSION: Aborted CT guided biopsy of the right apical nodule secondary to resolution on repeat im aging. Findings suggests previously-seen nodule was infectious/inflammatory. COMMENT: Quality ID [id number]: Final reports for procedures using fluoroscopy that document radiation exp osure indices, or exposure time and number of fluorographic images (if radiation exposure indices are not available) Patient medication list reviewed: Yes- Quality ID# [id number]:Eligible professional attests to documenting i n the medical record they obtained, updated, or reviewed the patient's current medications.. TECHNICAL DOCUMENTATION: JOB ID: [id number] Quality ID# [id number]: Final reports with documentation of one or more dose reduction techniques (e.g., Aut omated exposure control, adjustment of the mA and/or kV according to patient size, use of iterative r econstruction technique) 2010 [employer]- All Rights Reserved Reading location - IP/workstation name: [email or web address]
[2018-11-23 12:32] VITALS: BP 122/70
== END 2018-11-23 12:30 | disposition home or self-care (01) ==
LOC: RAD 08:48
PROVIDERS: ATTEND Internal Medicine Medical Oncology
DX: R91.1 Solitary pulmonary nodule (principal); Z79.01 Long term (current) use of anticoagulants
CPT/HCPCS: 36415; 82962; 84520; 82565; 85027; 85610; 85730; 71250; J2250; J3010; J2310; J3490

== ENCOUNTER → 2019-02-08 | Outpatient (CLI) | payer MEDICARE, BC ==
--- NOTE | 2019-02-09 09:21 | RADIOLOGY REPORT (SQ) ---
EXAM DESCRIPTION: PET CT SKULL/THIGH COMPLETED DATE/TIME: 02/08/2019 8:42 pm REASON FOR STUDY: C44.92 SQUAMOUS CELL CARCINOMA OF SKIN, UNSPECIFIED C44.92 SQUAMOUS CELL CARCINOM A OF SKIN, UNSPECIFIED COMPARISON: 10/31/2018 RADIONUCLIDE AND DOSE: 8.76 mCi F18 FDG The route of agent administration: Intravenous FASTING BLOOD SUGAR: 185 mg/dl CONTRAST TYPE AND DOSE: No CT contrast given. TECHNIQUE: Blood glucose level was verified. Above dose of FDG was injected intravenously. 2-D seg mented attenuation correction images were obtained from the base of the skull to the midthighs. Nonc ontrast CT images were obtained for attenuation correction and fusion with emission images. CT image s were performed without oral or intravenous contrast and are not sensitive for parenchymal lesions. A series of overlapping emission PET images were obtained. Images reviewed and manipulated at [facility] work station by the radiologist. Images stored on PACS. LIMITATIONS: None. FINDINGS: HEAD AND NECK: No areas of abnormal metabolic activity in the soft tissues of the head and neck. CHEST: Previously seen areas of increased metabolic activity within the posterior right upper lobe an d lingula are no longer present. No evidence of new hypermetabolic intrathoracic activity. ABDOMEN AND PELVIS: No areas of abnormal metabolic activity in the abdomen or pelvis. Expected physi ologic activity is present in the genitourinary system and bowel. PROXIMAL LOWER EXTREMITIES: No areas of abnormal metabolic activity in the soft tissues of the lower extremities. BONES: No abnormal metabolic activity in the visualized skeleton. ADDITIONAL CT FINDINGS: Resolution of previously seen right upper lobe and lingular nodular opacities . No new acute intrathoracic process. Scattered coronary atherosclerosis. No evidence of acute int ra-abdominal/pelvic process. Scattered colonic diverticula. OTHER: Background liver activity (max SUV 2.6). Background blood pool activity (max SUV 1.6). IMPRESSION: 1. Negative PET-CT. 2. Resolution of previously seen hypermetabolic nodules within the right upper lobe and lingula. TECHNICAL DOCUMENTATION: JOB ID: [id number] [employer]- All Rights Reserved Reading location - IP/workstation name: [email or web address]
== END ==
LOC: RAD 16:14
PROVIDERS: ATTEND Internal Medicine Medical Oncology
DX: C44.82 Squamous cell carcinoma of overlapping sites of skin (principal)
CPT/HCPCS: 78815; A9552

== ENCOUNTER → 2019-04-14 | Outpatient (CLI) | payer MEDICARE, BC ==
[2019-04-14 10:16] LABS: ALBUMIN 4.1 g/dL (3.5-5.0); ALKALINE PHOSPHATASE 85 U/L (38-126); ASPARTATE AMINO TRANSFERASE 24 U/L (17-59); BILIRUBIN,DIRECT 0.2 mg/dL (0.0-0.4); BILIRUBIN,TOTAL 0.3 mg/dL (0.2-1.3); CHOLESTEROL 150.17 mg/dL (0-200); TOTAL PROTEIN 6.6 g/dL (6.3-8.2); TRIGLYCERIDES 122 mg/dL (<150)
[2019-04-14 10:27] LABS: DIRECT LDL 91 mg/dL (<100)
== END ==
LOC: OD 08:58
PROVIDERS: ATTEND Specialist
DX: I25.10 Atherosclerotic heart disease of native coronary artery without angina pectoris (principal); I25.2 Old myocardial infarction; E78.5 Hyperlipidemia, unspecified; E11.9 Type 2 diabetes mellitus without complications; I10 Essential (primary) hypertension; E34.0 Carcinoid syndrome
CPT/HCPCS: 36415; 80061; 80076; 83036